=== PATIENT | female | born 2000 | race Caucasian/White ===

== ENCOUNTER 2023-05-16 18:54 | Emergency (ER) | payer SELFPAY ==
[~2023-05-16] VITALS: Ht 165.1 cm; Wt 96.8 kg
[~2023-05-16 18:54] MED LIST: HCTZ 25MG TAB25 MG PO; PRIL40 PO; ZOLOFT 100MG100 MG PO; ZYRTEC 10MG10 MG PO
[2023-05-16 19:00] VITALS: BP 125/84; TEMP 97.4
[2023-05-16] MEDS ORDERED: AMOXICILLIN 8751 TAB PO ×2 (19:24)
[2023-05-16 19:53] VITALS: PULSE 91
[2023-05-17] MEDS ORDERED: AMOXICILLIN 8751 TAB PO (12:56)
== END 2023-05-16 19:54 | disposition home or self-care (01) ==
LOC: COL.ER 18:54
DX: S61.250A Open bite of right index finger without damage to nail, initial encounter (principal); S61.052A Open bite of left thumb without damage to nail, initial encounter; W55.01XA Bitten by cat, initial encounter